=== PATIENT | male | born 1975 | race Caucasian/White ===

== ENCOUNTER 2020-02-04 23:44 | Emergency (ER) | payer BC, SELFPAY ==
[2020-02-04 23:45] VITALS: BP 143/88; PULSE 78; RESP 16; TEMP 36.6; O2SAT 97
[2020-02-04 23:53] VITALS: RESP 16
--- NOTE | 2020-02-05 00:09 | ED.ALCOHOL ---
HPI - Alcohol General Chief Complaint: Alcohol <Vinay Fregoso DO - Last Filed: 02/05/20 05:59> Stated Complaint: drunk <Vinay Fregoso DO - Last Filed: 02/05/20 05:59> Time Seen by Provider: 02/04/20 23:57 <Vinay Fregoso DO - Last Filed: 02/05/20 05:59> Source: RN notes reviewed <Vinay Fregoso DO - Last Filed: 02/05/20 05:59> History of Present Illness HPI narrative: Patient presents emergency department via EMS for alcohol intoxication. Patient was out drinking this evening and taken on uber home. When neighbor got to the patient's house the patient was unable to be aroused and get out of the uber on his own. At that time EMS was called and EMS had removed the patient in the car and brought the patient to emergency department. The patient is currently awake and does not recall the incident. States he was drinking tonight. He denies any complaints at this time <Vinay Fregoso DO - Last Filed: 02/05/20 05:59> Related Data Allergies/Adverse Reactions: Allergies Allergy/AdvReac Type Severity Reaction Status Date / Time No Known Allergies Allergy Unverified 09/16/14 13:52 <Vinay Fregoso DO - Last Filed: 02/05/20 05:59> Review of Systems Review of Systems: Narrative: Gen.: Denies fevers or chills ENT: Denies congestion Respiratory: Denies shortness of breath or cough CV: Denies chest pain or palpitations GI: Denies abdominal pain nausea, emesis or diarrhea Musculoskeletal: Denies back pain or muscle pain Neuro: Denies numbness, tingling, weakness or focal weakness Skin: Denies rash Except as documented, all other systems reviewed and negative <DO China Alberto Last Filed: 02/05/20 05:59> PMFSH Past Medical History Medical History: Medical History (Updated 02/05/20 @ 05:59 by Vinay Fregoso DO) Patient denies significant medical history <Vinay Fregoso DO - Last Filed: 02/05/20 05:59> Social History Social History: Social History (Updated 02/05/20 @ 00:10 by Vinay Fregoso DO) Smoking status: Never smoker <Vinay Fregoso DO - Last Filed: 02/05/20 05:59> Exam Narrative: Exam Narrative: APPEARANCE: No acute distress, nontoxic, resting in bed smell of EtOH on breath EYES: EOMI HEENT: Normocephalic, atraumatic, OMM RESPIRATORY: No respiratory distress Clear to auscultation bilaterally with no rhonchi wheezing or rales. CARDIOVASCULAR: Regular rate and rhythm without murmurs rubs or gallops. ABDOMINAL: Soft, nontender, nondistended, no rebound or guarding MUSCULOSKELETAl: Moves all extremities. NEURO: Awake and alert. Following commands, mild slurred speech, no focal deficits SKIN:: Warm, dry. No rashes lesions or abrasions PSYCHIATRIC: Normal affect/mood, <Vinay Fregoso DO - Last Filed: 02/05/20 05:59> Course Vital Signs Vital signs: Vital Signs Temperature 36.6 C 02/04/20 23:45 Pulse Rate 78 02/04/20 23:45 Respiratory Rate 16 02/04/20 23:45 Blood Pressure 143/88 H 02/04/20 23:45 Pulse Oximetry 97 02/04/20 23:45 Temperature 36.6 C 02/04/20 23:45 Pulse Rate 85 02/05/20 07:16 Respiratory Rate 18 02/05/20 07:16 Blood Pressure 135/96 H 02/05/20 07:16 Pulse Oximetry 95 02/05/20 07:16 <Vinay Fregoso DO - Last Filed: 02/05/20 05:59> Vital Signs Temperature 36.6 C 02/04/20 23:45 Pulse Rate 78 02/04/20 23:45 Respiratory Rate 16 02/04/20 23:45 Blood Pressure 143/88 H 02/04/20 23:45 Pulse Oximetry 97 02/04/20 23:45 Temperature 36.6 C 02/04/20 23:45 Pulse Rate 85 02/05/20 07:16 Respiratory Rate 18 02/05/20 07:16 Blood Pressure 135/96 H 02/05/20 07:16 Pulse Oximetry 95 02/05/20 07:16 <Eileen Chávez MD - Last Filed: 02/05/20 07:27> MDM - Alcohol MDM Narrative Medical decision making narrative: Patient was reassessed this morning and is alert and oriented to person, place, and to time. He is ambulatory.
[2020-02-05 00:50] LABS: Ethanol 446 mg/dL (<10)
[2020-02-05 03:06] VITALS: PULSE 78; RESP 18; O2SAT 96
[2020-02-05 06:13] VITALS: PULSE 71; RESP 18; O2SAT 96
[2020-02-05 07:16] VITALS: BP 135/96; PULSE 85; RESP 18; O2SAT 95
== END 2020-02-05 07:30 | disposition home or self-care (01) ==
PROVIDERS: Emergency Medicine; Emergency Provider Emergency Medicine
DX: F10.129 Alcohol abuse with intoxication, unspecified (principal); Y90.8 Blood alcohol level of 240 mg/100 ml or more
CPT/HCPCS: 36415; 80307; 99283

== ENCOUNTER 2023-06-01 14:02 | Emergency (ER) | payer BC, SELFPAY ==
--- NOTE | ~2023-06-01 | XR_ITS ---
Right foot Technique: AP, oblique, and lateral views were obtained. Clinical History: Pain Findings: No acute fracture or dislocation is seen. Osseous alignment is anatomic. Joint spaces are p reserved without erosive or degenerative change. Probable mild soft tissue swelling of the dorsal for efoot. Impression: No fracture or dislocation. Reviewed, dictated and finalized at location . AULIC LIFT OPERATOR Impression: No fracture or dislocation.
--- NOTE | ~2023-06-01 | XR_ITS ---
Right ankle Technique: AP, oblique, and lateral views were obtained. Clinical History: Pain and swelling Findings: No acute fracture or dislocation is seen. Osseous alignment is anatomic. Ankle mortise and other visualized joint spaces are preserved. Soft tissues are otherwise unremarkable. Impression: Unremarkable right ankle. Reviewed, dictated and finalized at [facility]. RITIES TRADER Impression: Unremarkable right ankle.
[2023-06-01 14:12] VITALS: BP 177/119; PULSE 116; RESP 16; TEMP 36.9; O2SAT 97
--- NOTE | 2023-06-01 14:36 | ED.LOWEXIN ---
HPI - Extremity Injury (Lower) General Chief Complaint: Extremity Injury, Lower Stated Complaint: Injured Foot Time Seen by Provider: 06/01/23 14:36 Source: patient, RN notes reviewed and old records reviewed Mode of arrival: ambulatory Limitations: no limitations History of Present Illness HPI Narrative: 47-year-old male presents to the [facility] with complaints of an injured left foot and ankle since . Patient reports he has not been able to walk since then. Denies any back pain. Denies any past medical or surgical history. States he has not seen a doctor in 10-15 years. MD complaint: ankle injury and foot injury Onset (ago): week(s) (2 weeks) Injury: Right: foot Type of Injury: other (fall) Related Data Home Medications Medication Instructions Recorded Confirmed No Home Medications 06/01/23 06/01/23 Allergies Allergy/AdvReac Type Severity Reaction Status Date / Time No Known Allergies Allergy Unverified 09/16/14 13:52 Review of Systems Review of Systems: All systems reviewed & are unremarkable except as noted in HPI and below Constitutional: Constitutional: Reports no additional constitutional complaints Eyes: Eyes: Reports no additional eye complaints ENT: Reports system reviewed and no additional complaints, except as documented Cardiovascular: Cardiovascular: Reports as per HPI, Denies chest pain, Reports claudication, Denies leg ulcers, Reports leg edema, Denies dyspnea and Denies dyspnea on exertion Respiratory: Respiratory: Reports no additional respiratory complaints, Denies chest congestion, Denies cough and Denies dyspnea Gastrointestinal: Gastrointestinal: Reports no additional gastrointestinal complaints, Denies abdominal pain, Denies nausea and Denies vomiting Musculoskeletal: Musculoskeletal: Reports as per HPI, Reports abnormal gait, Reports arthralgias and Reports joint swelling Integumentary/Breasts: Skin/Breast: Reports system reviewed and no additional complaints, except as docu Neurologic: Reports system reviewed and no additional complaints, except as documented Psychiatric: Psychiatric: Reports no additional psychiatric complaints Allergic/Immunologic: Allergic/Immunologic: Reports no additional allergic/immunologic complaints PMFSH Past Medical History Medical History Patient denies significant medical history Social History Social History Smoking status: Never smoker Comments At the time of my signature, I reviewed and agree with the nursing past medical, surgical, social, and family history. There is no relevant family history pertinent to the patient complaint. Exam Const: General: cooperative, no acute distress, well developed, alert, ill appearing chronically, uncomfortable and well nourished Nutritional Appearance: well nourished Orientation/consciousness: patient oriented x3 Limitations: no limitations HENMT: Head: normal to inspection Ears: hearing grossly normal bilaterally and external ears normal Face/Nose/Sinus: Normal external nose present, Normal nares present, Normal nasal mucous membranes and turbinates present, normal facial exam and face symmetric Face and sinus: normal facial exam and face symmetric Eyes: General: appearance normal, both eyes and all related structures Alignment and Position: alignment normal Periorbital: periorbital findings normal Pupils: Equal, round and reactive pupils present EOM: EOMs intact bilaterally Neck: Neck: normal visual inspection, full ROM, no lymphadenopathy and no meningeal signs Chest: Chest palpation & inspection: normal inspection of the chest Resp: Effort & Inspection: normal respiratory effort and able to speak in complete sentences Cardio: Rate: tachycardic Rhythm: regular rhythm Back/Spine/Pelvis: Cervical Spine: cervical ROM normal Skin: General skin exam: normal color
--- NOTE | 2023-06-01 15:02 | PC.NURSE ---
pt requesting ambulance to go to ED for further eval. attempted to teach pt regarding the possible not meeting requiements for EMS payment. states she wants EMS called and will worry about the bill later.
== END 2023-06-01 15:19 | disposition short-term general hospital (02) ==
PROVIDERS: Emergency Provider Nurse Practitioner
DX: M79.672 Pain in left foot (principal); R60.0 Localized edema; R03.0 Elevated blood-pressure reading, without diagnosis of hypertension
CPT/HCPCS: 73610; 73630; 99205; G0463

== ENCOUNTER 2023-06-01 15:48 | Observation (INO) | payer BC, SELFPAY ==
[2023-06-01] VITALS (27 sets, daily range): BP systolic 129–192; BP diastolic 85–129; PULSE 94–116; RESP 15–39; TEMP 36.4–37.9; O2SAT 94–100; BMI 36.3
--- NOTE | ~2023-06-01 | US_ITS ---
EXAMINATION: US abdomen limited DATE: 06/02/2023 14:56 INDICATION: Possible ascites and cirrhosis TECHNIQUE: Multiple grayscale and Doppler ultrasound images of the abdomen were obtained. COMPARISON: None available FINDINGS: Bowel gas obscures visualization of the pancreas. The visualized portions of the pancreas a re unremarkable. The liver demonstrates increased echogenicity, heterogenous echotexture, and decreas ed through transmission. No surface nodularity. Normal hepatopetal flow in the main portal vein. The gallbladder is normal with no abnormal wall thickening, pericholecystic fluid or stones. The normal c ommon bile duct measures 3 mm. There was no sonographic Colin sign. No ascites is identified. IMPRESSION: 1. Diffuse hepatic steatosis. Reviewed, dictated and finalized at location F. AGING ASSOCIATE
--- NOTE | ~2023-06-01 | XR_ITS ---
Portable chest x-ray Comparison: 08/27/2005 Clinical History: Hypertension Findings: Lungs are clear, without focal consolidation or pleural effusion. Cardiomediastinal silho uette is prominent. Bones and soft tissues are unremarkable. Impression: Clear lungs. Probable cardiomegaly. Reviewed, dictated and finalized at location . RENTAL CLERK Impression: Clear lungs. Probable cardiomegaly.
--- NOTE | 2023-06-01 15:59 | ECG_ITS ---
Measurements Intervals [place] Rate: 99 P: 4 GA: 140 QRS: -32 QRSD: 97 T: 17 QT: 345 QTc: 444 Interpretive Statements SINUS RHYTHM VENTRICULAR PREMATURE COMPLEXES LEFT AXIS DEVIATION INCOMPLETE RIGHT BUNDLE BRANCH BLOCK VOLTAGE CRITERIA FOR LVH CANNOT RULE OUT SEPTAL INFARCT, AGE INDETERMINATE BASELINE WANDER- V5 ABNORMAL ECG NO PREVIOUS ECG AVAILABLE FOR COMPARISON Electronically Signed On 06-01-2023 16:58:26 USER EXPERIENCE MANAGER by Eddie Joyce D.O.
[2023-06-01 16:21] LABS: Basophils Percent Auto 0.3 % (0.2-1.2); Eosinophils Percent Auto 0.3 % (0-4.4); Hematocrit 41.5 % (42.0-52.0); Hemoglobin 13.8 g/dL (14.0-18.0); Immature Granulocyte Absolute 0.04 K/mm3 (0.00-0.031); Immature Granulocyte Percent A 0.4 % (0-0.5); Lymphocytes Absolute Auto 1.16 K/mm3 (0.9-3.2); Lymphocytes Percent Auto 10.6 % (18.3-44.2); Mean Corpuscular HGB Conc 33.3 g/dl (32-36); Mean Corpuscular Hemoglobin 34.2 pg (26-34); Mean Platelet Volume 9.9 fl (7.4-10.4); Monocytes Absolute Auto 1.3 K/mm3 (0.1-0.6); Monocytes Percent Auto 11.7 % (2.6-8.5); Neutrophils Absolute Auto 8.4 K/mm3 (1.3-6.7); Neutrophils Percent Auto 76.7 % (45.5-73.1); Platelet Count Result 165 k/mm3 (150-375); Red Blood Count 4.03 M/mm3 (4.6-6.20); Red Cell Distribution Width 12.2 % (11.5-14.5)
--- NOTE | 2023-06-01 16:29 | ED.LOWEXIN ---
HPI - Extremity Injury (Lower) General Chief Complaint: Extremity Injury, Lower Stated Complaint: htn, b/l LE edema Time Seen by Provider: 06/01/23 16:29 Source: patient and EMS Mode of arrival: EMS History of Present Illness HPI Narrative: PATIENT LIVES ALONE, DROPPED A COMPUTER ON THE RIGHT FOOT April, DID NOT FOLLOW-UP WITH ANY MEDICAL PROVIDER YET. CAME TO THE EMERGENCY ROOM BY AMBULANCE. HE DENIES OTHER INJURIES. PATIENT IS ALCOHOLIC, DRINKS DAILY, QUIT 4 DAYS AGO, WOULD LIKE TO STOP DRINKING. ALSO COMPLAINING OF ABDOMINAL DISTENSION AND SWELLING OF THE LEGS BILATERALLY MORE ON THE RIGHT FOOT. Related Data Home Medications Medication Instructions Recorded Confirmed No Home Medications 06/01/23 06/01/23 Allergies Allergy/AdvReac Type Severity Reaction Status Date / Time No Known Allergies Allergy Verified 06/01/23 15:55 Review of Systems Review of Systems: All systems reviewed & are unremarkable except as noted in HPI and below PMFSH Past Medical History Medical History Patient denies significant medical history Social History Social History Smoking status: Never smoker Exam Narrative: GENERAL APPEARANCE: WELL-DEVELOPED, WELL-NOURISHED, SHAKING SKIN: NORMAL COLOR, 2+ EDEMA LOWER EXTREMITY BILATERALLY HEAD: NORMOCEPHALIC, NONTRAUMATIC EYES: CLEAR CONJUNCTIVA ENT: OROPHARYNX NORMAL, EARS NORMAL, NOSE NORMAL NECK: SUPPLE, NONTENDER CHEST AND RESPIRATORY: AIRWAY PATENT, NO RESPIRATORY DISTRESS, NO ACCESSORY MUSCLE USE HEART: REGULAR RATE/RHYTHM ABDOMEN: SOFT, ASCITES, NO ORGANOMEGALY, QUIET BOWEL SOUNDS VASCULAR: NORMAL PERIPHERAL PULSES, NORMAL CAPILLARY REFILL. MUSCULOSKELETAL: NORMAL RANGE OF MOTION, NONTENDER BACK NEUROLOGIC: ALERT AND ORIENTED ?3, TROLLEY COACH DRIVER IS NORMAL TESTED, NO GROSS MOTOR DEFICIT Course Vital Signs Vital signs: Vital Signs Temperature 37.3 C 06/01/23 15:51 Pulse Rate 101 H 06/01/23 15:51 Respiratory Rate 16 06/01/23 15:51 Blood Pressure 190/120 H 06/01/23 15:51 Pulse Oximetry 100 06/01/23 15:51 Oxygen Delivery Room Air 06/01/23 15:51 Temperature 37.3 C 06/01/23 15:51 Pulse Rate 101 H 06/01/23 15:51 Respiratory Rate 16 06/01/23 15:51 Blood Pressure 190/120 H 06/01/23 15:51 Pulse Oximetry 100 06/01/23 15:51 Oxygen Delivery Room Air 06/01/23 15:51 MDM - Extremity Injury (Lower) MDM Narrative Medical decision making narrative: PATIENT REFERRED TO THE EMERGENCY ROOM FOR URGENT CARE BECAUSE OF SWELLING LOWER EXTREMITIES AND ASCITES. PATIENT REPORTS PAIN OF THE RIGHT FOOT SECONDARY TO A COMPUTER FELL ON IT 6 DAYS AGO. X-RAY SHOWED NO FRACTURE. PATIENT WAS ADVISED TO GO TO THE EMERGENCY ROOM FOR FURTHER EVALUATION, REFERRED TO OUR EMERGENCY ROOM BY AMBULANCE. FAMILY MEMBER AT THE BEDSIDE REQUESTED PATIENT BE HOSPITALIZED AND TO MANAGE IS ALCOHOL WITHDRAWAL, LAST INTAKE WAS 4 DAYS AGO. VITAL SIGNS ON ARRIVAL SHOWED BLOOD PRESSURE 190/120. HEART RATE 101. PHYSICAL EXAMINATION ABOVE DIFFERENTIAL DIAGNOSIS INCLUDE ALCOHOL WITHDRAWAL, ELECTROLYTE IMBALANCE, CHF, HEPATIC FAILURE, RENAL FAILURE, LIVER CIRRHOSIS WITH ASCITES, ELEVATED PT WORKUP TODAY SHOWED ELEVATED WBC, ELEVATED BNP 812, CHEST X-RAY SHOWED CARDIOMEGALY, EKG SHOWED SINUS TACHYCARDIA. IN THE ED PATIENT RECEIVED THIAMINE, MULTIVITAMIN AND FOLIC ACID, 2 MG OF ATIVAN IV ADMIT TO HOSPITALIST ALCOHOL WITHDRAWAL,, ASCITES, CHF Differential Diagnosis Differential diagnosis: Likely other ( ABOVE) Lab Data 06/01/23 16:15 06/01/23 16:15 Labs: Lab Res
[2023-06-01 16:31] LABS: Alanine Aminotransferase 34 U/L (6-50); Albumin Level 4.3 g/dL (3.5-5.1); Alkaline Phosphatase 73 U/L (38-126); Anion Gap 13 mmol/L (8-16); Aspartate Amino Transferase 37 U/L (17-59); Bilirubin,Total 1.4 mg/dL (0.2-1.3); Blood Urea Nitrogen 9 mg/dL (9-20); Calcium 9.2 mg/dL (8.4-10.2); Carbon Dioxide 28 mmol/L (22-30); Chloride 96 mmol/L (98-107); Estimated CRCL calculation 152 ml/min; Estimated Glomerular Filt Rate > 60; Glucose 105 mg/dL (65-110); Sodium 137 mmol/L (137-145)
[2023-06-01 16:32] LABS: INR 1.1; Partial Thromboplastin Time 31.8 SECONDS (22.3-36.8); Prothrombin Time 14.3 Seconds (11.1-14.7)
[2023-06-01 16:42] LABS: NT Pro B Type Natriuretic Pept 812 pg/mL (19.9-100); Troponin I < 0.012 ng/mL (0.000-0.034)
[2023-06-01 18:29] LABS: Ethanol < 10 mg/dL (<10)
[2023-06-01] MEDS: FOLIC ACID 1 MG TABLET PO (19:04)
[2023-06-01] MEDS: THERAPEUTIC MULTIVITAMINS/MINERALS TAB (*BKC) 1 TABLET PO (19:04)
[2023-06-01] MEDS: THIAMINE HCL 200 MG/2 ML VIAL 100 MG IV PUSH (19:05)
[2023-06-01] MEDS: LORazepam INJ (*CRX) 2 MG/ML VIAL IV PUSH (19:10)
[2023-06-01] MEDS: LABETALOL HCL INJ 100 MG/20 ML VIAL 20 MG IV PUSH (19:11)
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
[2023-06-01] MEDS: chlordiazePOXIDE (*CRX) 25 MG CAPSULE 50 MG PO (21:08)
--- NOTE | 2023-06-01 21:30 | ADMGEN ---
This patient, Pratima Soto, was admitted to Medical Room 345-01. Patient/family oriented to hospital policies and general routines including ID bracelet, bed and alarms, visiting hours, pain management, procedures, bathroom and other care routines, personal items, smoking policy, room service/diet, and visiting hours. Information on how to activate the Rapid Response Team has been discussed. Patient/Family are encouraged to report perceived risks to care and to ask questions if they do not understand what they are told or what they should do.
[2023-06-02] VITALS (10 sets, daily range): BP systolic 143–172; BP diastolic 105–112; PULSE 74–105; RESP 16–18; TEMP 36.6–36.8; O2SAT 95–96
[2023-06-02 00:17] LABS: Glucose Point of Care 145 mg/dl (65-105)
[2023-06-02] MEDS: LORazepam INJ (*CRX) 2 MG/ML VIAL 1 MG IV PUSH ×2 (01:21→06:00)
[2023-06-02 05:43] LABS: Glucose Point of Care 98 mg/dl (65-105)
[2023-06-02 08:07] LABS: Hematocrit 39.5 % (42.0-52.0); Hemoglobin 13.1 g/dL (14.0-18.0); Mean Corpuscular HGB Conc 33.2 g/dl (32-36); Mean Corpuscular Hemoglobin 34.3 pg (26-34); Mean Corpuscular Volume 103.4 fl (80-100); Mean Platelet Volume 10.5 fl (7.4-10.4); Platelet Count Result 151 k/mm3 (150-375); Red Blood Count 3.82 M/mm3 (4.6-6.20); Red Cell Distribution Width 12.4 % (11.5-14.5); White Blood Count 7.8 K/mm3 (4.5-10.0)
[2023-06-02] MEDS: ENOXAPARIN 40 MG/0.4 ML SYRINGE SUB-Q (09:12)
[2023-06-02] MEDS: PANTOPRAZOLE SODIUM IV 40 MG VIAL IV PUSH (09:12)
[2023-06-02] MEDS: THIAMINE HCL 100 MG TABLET PO (09:12)
[2023-06-02] MEDS: FOLIC ACID 1 MG TABLET PO (09:12)
[2023-06-02 09:21] LABS: Alanine Aminotransferase 30 U/L (6-50); Albumin Level 3.7 g/dL (3.5-5.1); Alkaline Phosphatase 65 U/L (38-126); Anion Gap 9 mmol/L (8-16); Aspartate Amino Transferase 32 U/L (17-59); Blood Urea Nitrogen 9 mg/dL (9-20); Calcium 8.8 mg/dL (8.4-10.2); Carbon Dioxide 31 mmol/L (22-30); Chloride 98 mmol/L (98-107); Cholesterol 244 mg/dL (0-200); Estimated CRCL calculation 178 ml/min; Estimated Glomerular Filt Rate > 60; Glucose 97 mg/dL (65-110); HDL Direct 57 mg/dL; Magnesium 1.6 mg/dL (1.6-2.3); Potassium 3.1 mmol/L (3.4-5.0); Sodium 138 mmol/L (137-145); Triglycerides 71 mg/dL (<150)
[2023-06-02 09:37] LABS: LDL Cholesterol Direct 137 mg/dL
[2023-06-02 09:38] LABS: Iron 53 ug/dL (49-181)
[2023-06-02 09:50] LABS: Percent Iron Saturation 20 % (20-50)
[2023-06-02 11:59] LABS: Glucose Point of Care 112 mg/dl (65-105)
[2023-06-02 12:14] LABS: Folic Acid 9.7 ng/mL (2.76->20)
--- NOTE | 2023-06-02 14:21 | P.PNIM_ITS ---
Progress Note: A&P Assessment and Plan (1) Alcohol withdrawal: Code(s): F10.939 - Alcohol use, unspecified with withdrawal, unspecified Status: Acute Assessment and Plan: Reportedly drink heavier 5 months prior to now. Admits to drinking 1-2 drinks every other day. * While inpatient, starting CIWA protocol. * Suspect patient has been developing ascites last months given increasing abdominal distension, current abdominal discomfort, and early satiety/lack appetite. * Will evaluate with a ultrasound of the abdomen to evaluate for ascites and cirrhosis. * Will add on anemia workup. * Start thiamine and folic acid supplementation. * Start pantoprazole IVP daily. * ETOH level <10 (2) Bilateral edema of lower extremity: Code(s): R60.0 - Localized edema Status: Acute Assessment and Plan: Concern for underlying cirrhosis/ascites. * However BNP also elevated at 812. * Echo ordered. * Troponin negative x1. * RUQ US ordered to rule out cirrhosis (3) Elevated BP without diagnosis of hypertension: Code(s): R03.0 - Elevated blood-pressure reading, without diagnosis of hypertension Status: Acute Assessment and Plan: Patient reported that his blood pressure was elevated when he was hospitalized with COVID but did not follow-up with his PCP to assess if he needed to continue blood pressure medications. * systolic BP averaging greater than 160 with diastolic averaging greater than 100. * Will start him on 5 of amlodipine. (4) Depression: Code(s): F32.A - Depression, unspecified Status: Acute Assessment and Plan: Denies any current SI/HI. Reports anhedonia, poor appetite, and affect blunted/sad. Is interested in establishing care with a psychiatrist. Has never tried pressure medications prior. Endorsing depressed feelings/depressed thoughts. * Recommend finding PCP and starting patient on antidepressants. * Jeremy schaefer [place] will see patient for alcohol withdrawal (5) Right foot pain: Code(s): M79.671 - Pain in right foot Status: Acute Assessment and Plan: Trauma to right foot on 05/19. Able to ambulate after injury for 1-2 days. Then has had progressively worse pain over the last 2 weeks. Unable to apply pressure. * XR of foot and ankle were unremarkable/no fracture or dislocation identified. * Given alysha swelling to anterior foot, c/f underlying stress fracture. * May need 1-2 weeks of unloading via partial to nonweightbearing with crutches. * Consider to or orthopedic shoe at discharge * Ice to affected area Q6H. Subjective Date/time seen: 06/02/23 14:21 Interval history: Patient states that he has continued to have right foot pain. Agree with admitting provider that patient could very well have a stress fracture and elevating and icing the foot will aid with healing process. Patient states that he dropped a computer on his foot around [place] and decided to come in now due to worsening foot pain. Patient does have distended abdomen and there is possible concern for cirrhosis. When asking the patient about swelling he says that he does get intermittent abdominal and lower extremity swelling. Exam Narrative: GENERAL: Comfortable, no acute distress HENMT: moist mucous membranes EYES: EOM intact b/l NECK: no lymphadenopathy RESPIRATORY: clear to auscultation CARDIO: RRR GI: soft, distended, bowel sounds present SKIN: no rashes EXTREMITIES: no edema, red
--- NOTE | 2023-06-02 14:21 | PM.IMPN ---
Progress Note: A&P Assessment and Plan (1) Alcohol withdrawal: Code(s): F10.939 - Alcohol use, unspecified with withdrawal, unspecified Status: Acute Assessment and Plan: Reportedly drink heavier 5 months prior to now. Admits to drinking 1-2 drinks every other day. While inpatient, starting CIWA protocol. Suspect patient has been developing ascites last months given increasing abdominal distension, current abdominal discomfort, and early satiety/lack appetite. Will evaluate with a ultrasound of the abdomen to evaluate for ascites and cirrhosis. Will add on anemia workup. Start thiamine and folic acid supplementation. Start pantoprazole IVP daily. ETOH level <10 (2) Bilateral edema of lower extremity: Code(s): R60.0 - Localized edema Status: Acute Assessment and Plan: Concern for underlying cirrhosis/ascites. However BNP also elevated at 812. Echo ordered. Troponin negative x1. RUQ US ordered to rule out cirrhosis (3) Elevated BP without diagnosis of hypertension: Code(s): R03.0 - Elevated blood-pressure reading, without diagnosis of hypertension Status: Acute Assessment and Plan: Patient reported that his blood pressure was elevated when he was hospitalized with COVMS but did not follow-up with his PCP to assess if he needed to continue blood pressure medications. systolic BP averaging greater than 160 with diastolic averaging greater than 100. Will start him on 5 of amlodipine. (4) Depression: Code(s): F32.A - Depression, unspecified Status: Acute Assessment and Plan: Denies any current SI/HI. Reports anhedonia, poor appetite, and affect blunted/sad. Is interested in establishing care with a psychiatrist. Has never tried pressure medications prior. Endorsing depressed feelings/depressed thoughts. Recommend finding PCP and starting patient on antidepressants. Jeremy schaefer [place] will see patient for alcohol withdrawal (5) Right foot pain: Code(s): M79.671 - Pain in right foot Status: Acute Assessment and Plan: Trauma to right foot on 05/19. Able to ambulate after injury for 1-2 days. Then has had progressively worse pain over the last 2 weeks. Unable to apply pressure. XR of foot and ankle were unremarkable/no fracture or dislocation identified. Given alysha swelling to anterior foot, c/f underlying stress fracture. May need 1-2 weeks of unloading via partial to nonweightbearing with crutches. Consider to or orthopedic shoe at discharge Ice to affected area Q6H. Subjective Date/time seen: 06/02/23 14:21 Interval history: Patient states that he has continued to have right foot pain. Agree with admitting provider that patient could very well have a stress fracture and elevating and icing the foot will aid with healing process. Patient states that he dropped a computer on his foot around [place] and decided to come in now due to worsening foot pain. Patient does have distended abdomen and there is possible concern for cirrhosis. When asking the patient about swelling he says that he does get intermittent abdominal and lower extremity swelling. Exam Narrative: GENERAL: Comfortable, no acute distress HENMT: moist mucous membranes EYES: EOM intact b/l NECK: no lymphadenopathy RESPIRATORY: clear to auscultation CARDIO: RRR GI: soft, distended, bowel sounds present SKIN: no rashes EXTREMITIES: no edema, redness or tenderness Objective Data Vital Signs Vital Signs: Vital Signs - 24 hr 06/01/23 15:51 06/01/23 15:53 06/01/23 15:55 Temperature 99.2 F Pulse Rate 101 H 101 H 100 Pulse Rate [Left Radial] Respiratory Rate 16 17 24 H Blood Pressure 190/120 H 190/120 H Pulse Oximetry 100 100 100 Oxygen Delivery Room Air 06/01/23 16:01 06/01/23 16:09 06/01/23 16:16 Temperature Pulse Rate 99 94 108 H Pulse Rate [Left Radial]
[2023-06-02 17:13] LABS: Glucose Point of Care 96 mg/dl (65-105)
[2023-06-02] MEDS: ACETAMINOPHEN 325 MG TABLET PO (17:41)
[2023-06-02] MEDS: amLODIPine BESYLATE 5 MG TABLET PO (17:41)
[2023-06-03] VITALS: PULSE 89
[2023-06-03 04:00] VITALS: PULSE 88
[2023-06-03 05:37] LABS: Glucose Point of Care 91 mg/dl (65-105)
[2023-06-03 05:37] LABS: Glucose Point of Care 90 mg/dl (65-105)
[2023-06-03 05:47] VITALS: BP 157/109; PULSE 99; RESP 18; TEMP 37; O2SAT 95
--- NOTE | 2023-06-03 06:00 | ECHO_ITS ---
Patient Info Name: Pratima Soto Age: 47 years : 1975 Gender: Male Ht: 67 in Wt: 230 lbs BSA: 2.26 m2 HR: 99 bpm BP: 157 / 109 mmHg Technical Quality: Fair Exam Date: 06/03/2023 11:04 AM Exam Location: Echo Lab Patient Status: Outpatient Admit Date: 06/01/2023 Staff Ordering Physician: Flako Patterson MD Attending Provider: Yudi Paige MD Exam Type: CA echo doppler color flow Study Info Indications - CHF Complete two-dimensional, color flow and Doppler transthoracic echocardiogram is performed. Summary 1. Complete two-dimensional, color flow and Doppler transthoracic echocardiogram is performed. 2. Left ventricular chamber dimension is normal. 3. Left ventricular systolic function is normal, estimated at 60-65%. 4. There is mild concentric increased left ventricular wall thickness. 5. The left ventricular diastolic function is grade I diastolic dysfunction. 6. E/e' 8 is minimally elevated. 7. Left atrial chamber dimension is moderately enlarged. 8. Right atrial chamber dimension is mildly enlarged. 9. There is mild aortic valve sclerosis. Left Ventricle E/e' 8 is minimally elevated. Left ventricular chamber dimension is normal. Left ventricular systolic function is normal, estimated at 60-65%. There is mild concentric increased left ventricular wall thickness. The left ventricular diastolic function is grade I diastolic dysfunction. Right Ventricle Right ventricular chamber dimension is normal. Right ventricular systolic function is normal. Left Atria Left atrial chamber dimension is moderately enlarged. Right Atria Right atrial chamber dimension is mildly enlarged. Aortic Valve The aortic valve is trileaflet. There is mild aortic valve sclerosis. There is no aortic valve stenosis. There is no aortic valve regurgitation. Pulmonic Valve There is no pulmonic regurgitation. Mitral Valve There is no mitral valve stenosis. There is no mitral valve regurgitation. Tricuspid Valve There is no tricuspid valve regurgitation. Pericardium/Pleural There is no pericardial effusion. Inferior Vena Cava Normal inferior vena cava with >50% collapse upon inspiration consistent with normal right atrial pressure, 5 mmHg. Aorta The aortic root size at the sinus of Valsalva is normal. Left Ventricular Outflow Tract Name Value Normal LVOT 2D LVOT Diameter 2.0 cm LVOT Doppler LVOT Peak Gradient 5 mmHg LVOT Mean Gradient 3 mmHg LVOT VTI 21 cm LVOT VTI/AV VTI Ratio 1.0 LVOT Stroke Volume 65 ml LVOT CO 5.4 l/min LVOT CI 2.4 l/min/m2 Pulmonic Valve Name Value Normal PV Doppler PV Peak Gradient 3 mmHg Mitral Valve Name
[2023-06-03 06:06] LABS: Alanine Aminotransferase 27 U/L (6-50); Albumin Level 3.8 g/dL (3.5-5.1); Alkaline Phosphatase 65 U/L (38-126); Anion Gap 9 mmol/L (8-16); Aspartate Amino Transferase 35 U/L (17-59); Bilirubin,Total 0.9 mg/dL (0.2-1.3); Blood Urea Nitrogen 9 mg/dL (9-20); Calcium 8.7 mg/dL (8.4-10.2); Carbon Dioxide 28 mmol/L (22-30); Chloride 99 mmol/L (98-107); Estimated CRCL calculation 178 ml/min; Estimated Glomerular Filt Rate > 60; Glucose 88 mg/dL (65-110); Potassium 3.3 mmol/L (3.4-5.0); Sodium 136 mmol/L (137-145)
[2023-06-03 06:08] LABS: Hematocrit 41.3 % (42.0-52.0); Hemoglobin 13.7 g/dL (14.0-18.0); Mean Corpuscular HGB Conc 33.2 g/dl (32-36); Mean Corpuscular Hemoglobin 34.5 pg (26-34); Mean Platelet Volume 10.5 fl (7.4-10.4); Platelet Count Result 152 k/mm3 (150-375); Red Blood Count 3.97 M/mm3 (4.6-6.20); Red Cell Distribution Width 12.3 % (11.5-14.5); White Blood Count 6.9 K/mm3 (4.5-10.0)
[2023-06-03 08:00] VITALS: PULSE 100
[2023-06-03] MEDS: ENOXAPARIN 40 MG/0.4 ML SYRINGE SUB-Q (09:16)
[2023-06-03] MEDS: FOLIC ACID 1 MG TABLET PO (09:16)
[2023-06-03] MEDS: THIAMINE HCL 100 MG TABLET PO (09:16)
[2023-06-03] MEDS: PANTOPRAZOLE SODIUM IV 40 MG VIAL IV PUSH (09:16)
[2023-06-03] MEDS: amLODIPine BESYLATE 5 MG TABLET PO (09:16)
[2023-06-03] MEDS: ACETAMINOPHEN 325 MG TABLET PO ×2 (09:17→22:29)
[2023-06-03] MEDS: POTASSIUM CHLORIDE 20 MEQ PACKET (FOR LIQUID) 40 MEQ PO (12:24)
--- NOTE | 2023-06-03 12:30 | PC.NURSE ---
artificial limb fitter called [employer] and ordered boot for patient around 1330.
[2023-06-03 15:24] VITALS: BP 155/106; PULSE 99; RESP 18; TEMP 36.6; O2SAT 96
--- NOTE | 2023-06-03 15:48 | PM.IMPN ---
Progress Note: A&P Assessment and Plan (1) Alcohol withdrawal: Code(s): F10.939 - Alcohol use, unspecified with withdrawal, unspecified Status: Acute Assessment and Plan: Reportedly drink heavier 5 months prior to now. Admits to drinking 1-2 drinks every other day. While inpatient, starting CIWA protocol. Suspect patient has been developing ascites last months given increasing abdominal distension, current abdominal discomfort, and early satiety/lack appetite. Will evaluate with a ultrasound of the abdomen to evaluate for ascites and cirrhosis. Will add on anemia workup. Start thiamine and folic acid supplementation. Start pantoprazole IVP daily. ETOH level <10 (2) Bilateral edema of lower extremity: Code(s): R60.0 - Localized edema Status: Inactive Assessment and Plan: Concern for underlying cirrhosis/ascites. However BNP also elevated at 812. Echo showing EF of 60-65%, grade 1 diastolic dysfunction and no pulmonary hypertension Troponin negative x1. RUQ US showing diffuse hepatic steatosis (3) Elevated BP without diagnosis of hypertension: Code(s): R03.0 - Elevated blood-pressure reading, without diagnosis of hypertension Status: Inactive Assessment and Plan: Patient reported that his blood pressure was elevated when he was hospitalized with COVID but did not follow-up with his PCP to assess if he needed to continue blood pressure medications. systolic BP averaging greater than 160 with diastolic averaging greater than 100. Will start him on 5 of amlodipine. (4) Depression: Code(s): F32.A - Depression, unspecified Status: Acute Assessment and Plan: Denies any current SI/HI. Reports anhedonia, poor appetite, and affect blunted/sad. Is interested in establishing care with a psychiatrist. Has never tried pressure medications prior. Endorsing depressed feelings/depressed thoughts. Recommend finding PCP and starting patient on antidepressants. Jeremy schaefer [place] will see patient for alcohol withdrawal (5) Right foot pain: Code(s): M79.671 - Pain in right foot Status: Acute Assessment and Plan: Trauma to right foot on 05/19. Able to ambulate after injury for 1-2 days. Then has had progressively worse pain over the last 2 weeks. Unable to apply pressure. XR of foot and ankle were unremarkable/no fracture or dislocation identified. Given alysha swelling to anterior foot, c/f underlying stress fracture. May need 1-2 weeks of unloading via partial to nonweightbearing with crutches. Consider to or orthopedic shoe at discharge Ice to affected area Q6H. Subjective Date/time seen: 06/03/23 15:48 Interval history: Patient continued to have right foot pain. Did order a ortho boot to put on the patient. Waiting on PT to work with him. Patient states that he cannot bear weight on the foot. Hoping that the boot will aid in his comfort as well as recovery. Patient may still need use crutches and/or walker. This was explained to the patient in detail. Waiting for PT evaluation. Exam Narrative: GENERAL: Comfortable, no acute distress HENMT: moist mucous membranes EYES: EOM intact b/l NECK: no lymphadenopathy RESPIRATORY: clear to auscultation CARDIO: RRR GI: soft, distended, bowel sounds present SKIN: no rashes EXTREMITIES: Edema in the right foot but no edema in the left Objective Data Vital Signs Vital Signs: Vital Signs - 24 hr 06/02/23 16:00 06/02/23 17:40 06/02/23 21:24 Temperature 98.2 F Pulse Rate 103 H 95 Respiratory Rate 18 Blood Pressure 159/106 H 143/106 H Pulse Oximetry 96 Oxygen Delivery 06/02/23 20:00 06/02/23 20:00 06/03/23 00:00 Temperature Pulse Rate 100 89 Respiratory Rate Blood Pressure Pulse Oximetry Oxygen Delivery Room Air 06/03/23 05:47 06/03/23 04:00 06/03/23 09:16 [place]
--- NOTE | 2023-06-03 16:55 | PC.NURSE ---
Ashley arrived and fitted patient for boot
[2023-06-03 22:00] VITALS: BP 160/94; PULSE 105; RESP 21; TEMP 36.5; O2SAT 100
[2023-06-03] MEDS: LORazepam INJ (*CRX) 2 MG/ML VIAL 1 MG IV PUSH (22:30)
[2023-06-04 06:00] VITALS: BP 167/99; PULSE 88; RESP 20; TEMP 36.2; O2SAT 99
[2023-06-04 06:24] LABS: Alanine Aminotransferase 30 U/L (6-50); Alkaline Phosphatase 65 U/L (38-126); Anion Gap 9 mmol/L (8-16); Aspartate Amino Transferase 39 U/L (17-59); Bilirubin,Total 0.8 mg/dL (0.2-1.3); Blood Urea Nitrogen 8 mg/dL (9-20); Carbon Dioxide 27 mmol/L (22-30); Chloride 100 mmol/L (98-107); Estimated CRCL calculation 151 ml/min; Estimated Glomerular Filt Rate > 60; Glucose 90 mg/dL (65-110); Potassium 3.5 mmol/L (3.4-5.0); Sodium 136 mmol/L (137-145)
[2023-06-04 06:30] LABS: Hematocrit 43.5 % (42.0-52.0); Hemoglobin 14.2 g/dL (14.0-18.0); Mean Corpuscular HGB Conc 32.6 g/dl (32-36); Mean Corpuscular Hemoglobin 34.1 pg (26-34); Mean Corpuscular Volume 104.6 fl (80-100); Mean Platelet Volume 10.4 fl (7.4-10.4); Platelet Count Result 152 k/mm3 (150-375); Red Blood Count 4.16 M/mm3 (4.6-6.20); Red Cell Distribution Width 12.3 % (11.5-14.5); White Blood Count 5.9 K/mm3 (4.5-10.0)
--- NOTE | 2023-06-04 07:48 | PM.DS ---
DS: Admitting Diagnosis Discharge Date 06/04/23 Admitting Diagnosis right foot pain, concern for cirrhosis DS: Discharge Diagnosis Discharge Diagnosis (1) Alcohol withdrawal: Code(s): F10.939 - Alcohol use, unspecified with withdrawal, unspecified Status: Acute Assessment and Plan: Reportedly drink heavier 5 months prior to now. Admits to drinking 1-2 drinks every other day. While inpatient, starting CIWA protocol. Suspect patient has been developing ascites last months given increasing abdominal distension, current abdominal discomfort, and early satiety/lack appetite. Will evaluate with a ultrasound of the abdomen to evaluate for ascites and cirrhosis. Start thiamine and folic acid supplementation. Start pantoprazole IVP daily. ETOH level <10 (2) Bilateral edema of lower extremity: Code(s): R60.0 - Localized edema Status: Inactive Assessment and Plan: Concern for underlying cirrhosis/ascites. However BNP also elevated at 812. Echo showing EF of 60-65%, grade 1 diastolic dysfunction and no pulmonary hypertension Troponin negative x1. RUQ US showing diffuse hepatic steatosis (3) Elevated BP without diagnosis of hypertension: Code(s): R03.0 - Elevated blood-pressure reading, without diagnosis of hypertension Status: Inactive Assessment and Plan: Patient reported that his blood pressure was elevated when he was hospitalized with COVID but did not follow-up with his PCP to assess if he needed to continue blood pressure medications. systolic BP averaging greater than 160 with diastolic averaging greater than 100. Will start him on 5 of amlodipine. (4) Depression: Code(s): F32.A - Depression, unspecified Status: Acute Assessment and Plan: Denies any current SI/HI. Reports anhedonia, poor appetite, and affect blunted/sad. Is interested in establishing care with a psychiatrist. Has never tried pressure medications prior. Endorsing depressed feelings/depressed thoughts. Recommend finding PCP and starting patient on antidepressants. Jeremy schaefer [place] will see patient for alcohol withdrawal (5) Right foot pain: Code(s): M79.671 - Pain in right foot Status: Acute Assessment and Plan: Trauma to right foot on 05/19. Able to ambulate after injury for 1-2 days. Then has had progressively worse pain over the last 2 weeks. Unable to apply pressure. XR of foot and ankle were unremarkable/no fracture or dislocation identified. Given alysha swelling to anterior foot, c/f underlying stress fracture. May need 1-2 weeks of unloading via partial to nonweightbearing with crutches. Ice to affected area Q6H. Orthopedic walking boot fitted to the patient and he is walking without difficulty now. DS: Summary Hospital Course Hospital Course: This is a 47-year-old male with a past medical history of alcohol abuse and depression that presented to the ED on 06/01/2023 after having swelling in his right foot. Patient had dropped a computer on his foot around [place] time and was having pain in his foot and swelling. He came to the point where he stated he could no longer walk and he was using crutches. He does have history of alcohol abuse and states that he has been slowly trying to cut back over the past 5 months but still drinks 1-2 alcoholic beverages every other day. There was concern for possible cirrhosis due to patient's lower extremity swelling and abdominal distension. X-rays were done of his right foot and did not reveal any fracture although due to the swelling patient possibly have a stress fracture not shown on x-ray. Right upper quadrant ultrasound showed diffuse hepatic steatosis. Echocardiogram showed EF of 60-65%, grade 1 diastolic dysfunction no pulmonary hypertension. Patient had a orthopedic boot fitted to his right foot and this helped him ambulate much better. Recommende
[2023-06-04] MEDS: PANTOPRAZOLE SODIUM IV 40 MG VIAL IV PUSH (08:31)
[2023-06-04] MEDS: ENOXAPARIN 40 MG/0.4 ML SYRINGE SUB-Q (08:31)
[2023-06-04] MEDS: amLODIPine BESYLATE 5 MG TABLET PO (08:31)
[2023-06-04] MEDS: FOLIC ACID 1 MG TABLET PO (08:31)
[2023-06-04] MEDS: THIAMINE HCL 100 MG TABLET PO (08:31)
== END 2023-06-04 13:17 | disposition home or self-care (01) ==
LOC: ANHED 18:02 → ANH3MED 21:02
PROVIDERS: Internal Medicine Critical Care Medicine; Student in an Organized Health Care Education/Training Program; Admitting Provider General Practice; Emergency Provider Emergency Medicine; Visit Provider General Practice
DX: F10.239 Alcohol dependence with withdrawal, unspecified (principal); Y90.0 Blood alcohol level of less than 20 mg/100 ml; R18.8 Other ascites; K76.0 Fatty (change of) liver, not elsewhere classified; R03.0 Elevated blood-pressure reading, without diagnosis of hypertension; I50.9 Heart failure, unspecified; I35.8 Other nonrheumatic aortic valve disorders; M79.671 Pain in right foot; R94.31 Abnormal electrocardiogram [ECG] [EKG]; F32.A Depression, unspecified
CPT/HCPCS: 36415; 71045; 73610; 73630; 76705; 80053; 80061; 80307; 82607; 82728; 82746; 82948; 83036; 83540; 83550; 83735; 83880; 84425; 84443; 84484; 85025; 85027; 85610; 85730; 93005; 93306; 96372; 96374; 96375; 96376; 97161; 99285; A9270; C9113; G0378; J1650; J2060; J3411